=== PATIENT | female | born 1960 | race Caucasian/White ===

== ENCOUNTER → 2016-12-02 | Outpatient (CLI) | payer BC ==
[2016-12-02 10:30] LABS: ALT 30 U/L (9-52); AST 20 U/L (14-36); Alkaline Phosphatase 71 U/L (38-126); Anion Gap 11 mmol/L; Blood Urea Nitrogen 13 mg/dL (7-17); Calcium 10.1 mg/dL (8.4-10.2); Carbon Dioxide 24 mmol/L (22-30); Chloride 108 mmol/L (98-107); Cholesterol 207 mg/dL (<200); Glucose 96 mg/dL (74-99); HDL Cholesterol 58 mg/dL (40-60); Non-African American GFR(MDRD) >60 (>60 ml/min/1.73 sqM); Potassium 4.4 mmol/L (3.5-5.1); Sodium 143 mmol/L (137-145); Total Bilirubin 0.6 mg/dL (0.2-1.3); Total Protein 6.9 g/dL (6.3-8.2); Triglycerides 93 mg/dL (<150)
== END | disposition home or self-care (01) ==
LOC: LABWHC1 09:04
PROVIDERS: ATTEND Obstetrics & Gynecology
DX: Z01.419 Encounter for gynecological examination (general) (routine) without abnormal findings (principal); Z13.29 Encounter for screening for other suspected endocrine disorder
CPT/HCPCS: 36415; 80053; 80061; 82306; 84439; 84443

== ENCOUNTER → 2016-12-31 | Outpatient (CLI) | payer BC ==
[2016-12-31 12:49] LABS: ALT 35 U/L (9-52); AST 24 U/L (14-36); Alkaline Phosphatase 70 U/L (38-126); Anion Gap 10 mmol/L; Blood Urea Nitrogen 14 mg/dL (7-17); Calcium 9.2 mg/dL (8.4-10.2); Carbon Dioxide 26 mmol/L (22-30); Chloride 105 mmol/L (98-107); Glucose 91 mg/dL (74-99); Magnesium 1.9 mg/dL (1.6-2.3); Non-African American GFR(MDRD) >60 (>60 ml/min/1.73 sqM); Potassium 4.6 mmol/L (3.5-5.1); Sodium 141 mmol/L (137-145); Total Bilirubin 0.6 mg/dL (0.2-1.3); Total Protein 6.7 g/dL (6.3-8.2)
== END | disposition home or self-care (01) ==
LOC: LABWHC1 11:47
PROVIDERS: ATTEND Family Medicine
DX: J30.2 Other seasonal allergic rhinitis (principal); B34.9 Viral infection, unspecified
CPT/HCPCS: 36415; 80053; 83735

== ENCOUNTER → 2017-05-25 | Outpatient (CLI) | payer BC ==
--- NOTE | 2017-05-26 10:22 | MM ---
Reason for exam: screening (asymptomatic). Last mammogram was performed 1 year and 2 months ago. History: Patient is postmenopausal and is nulliparous. Took hormonal contraceptives for 1 year. Taking estrogen for 5 years 4 months. Physical Findings: A clinical breast exam by your physician is recommended on an annual basis and results should be correlated with mammographic findings. MG 3D Screening Mammo W/Cad Bilateral CC and MLO view(s) were taken. Prior study comparison: April 04, 2016, bilateral MG 3d screening mammo w/cad. August 29, 2013, bilateral digital screening mammo w/CAD. May 02, 2012, [facility] DIGITAL RIGHT MAMMOGRAM w/CAD. The breast tissue is heterogeneously dense. This may lower the sensitivity of mammography. There are increasing heterogeneous calcifications. This finding is changed when compared with previous exams. ASSESSMENT: Incomplete: need additional imaging evaluation, BI-RAD 0 RECOMMENDATION: Special view mammogram of the right breast. [facility] will attempt to contact patient to return for supplemental views.
== END | disposition home or self-care (01) ==
LOC: RADMAMWWP 16:36
PROVIDERS: ATTEND Obstetrics & Gynecology
DX: Z12.31 Encounter for screening mammogram for malignant neoplasm of breast (principal)
CPT/HCPCS: 77063; G0202

== ENCOUNTER → 2017-05-30 | Outpatient (CLI) | payer BC ==
--- NOTE | 2017-05-30 11:20 | USB ---
Reason for exam: additional evaluation requested from abnormal screening. History: Patient is postmenopausal and is nulliparous. Took hormonal contraceptives for 1 year. Taking estrogen for 10 years beginning at age 46. US Breast Workup Limited RT Right breast ultrasound demonstrates a 9 x 8 x 6mm oval, lobular cystic cluster at palpable posterior nipple with possible solid component. These results were verbally communicated with the patient and result sheet given to the patient on 05/30/17. ASSESSMENT: Suspicious, BI-RAD 4 RECOMMENDATION: Ultrasound core biopsy of the right breast. Called Dr. Henriquez with mammographic findings and has scheduled an appointment for the patient for 06/15/17 at 10:[address] Chisholm. Biopsy scheduled for 06/02/17 at 8:00. PRELIMINARY REPORT CALLED AND FAXED TO DR. CHISHOLM ON 05/30/17/TP.
--- NOTE | 2017-05-30 11:21 | MM ---
Reason for exam: additional evaluation requested from abnormal screening. Last mammogram was performed 1 year and 2 months ago. History: Patient is postmenopausal and is nulliparous. Took hormonal contraceptives for 1 year. Taking estrogen for 10 years beginning at age 46. Physical Findings: Nurse Summary: 0.5cm nodule in the right breast at 12 o'clock (nurse lyle). MG Work Up Mamm w CAD RT CC, MLO, LM, LM with magnification, and CC with magnification view(s) were taken of the right breast. Prior study comparison: May 25, 2017, bilateral MG 3d screening mammo w/cad. April 04, 2016, bilateral MG 3d screening mammo w/cad. August 29, 2013, bilateral digital screening mammo w/CAD. Finding: There are punctate, round calcifications in the right breast for which a 6 month follow up is recommended. These results were verbally communicated with the patient and result sheet given to the patient on 05/30/17. ASSESSMENT: Incomplete: need additional imaging evaluation, BI-RAD 0 RECOMMENDATION: Ultrasound of the right breast. (right palpable) Manage patient on a clinical basis.
== END | disposition home or self-care (01) ==
LOC: RADMAMWWP 08:53
PROVIDERS: ATTEND Obstetrics & Gynecology
DX: R92.8 Other abnormal and inconclusive findings on diagnostic imaging of breast (principal)
CPT/HCPCS: 76642; G0206

== ENCOUNTER → 2017-06-02 | Day surgery (SDC) | payer BC ==
[2017-06-02 07:34] VITALS: RESP 16; TEMP 97.7; BMI 38.7
[2017-06-02 09:49] VITALS: BP 132/67; PULSE 78
--- NOTE | 2017-06-05 08:58 | MM ---
EXAMINATION TYPE: US biopsy breast VAD RT, US breast workup limited RT, MG diagnostic mammo RT wo CAD DATE OF EXAM: 06/02/2017 CLINICAL HISTORY: R92.8 ABN MAMMO. TECHNIQUE: Ultrasound guided core biopsy of right breast. COMPARISON: NONE FINDINGS: The procedure of ultrasound guided core biopsy was explained to the patient. Benefits, alternatives, and risks were discussed. An informed consent was then obtained. The patient was placed in supine positioning for imaging and for the procedure. The overlying skin was prepped and draped in usual sterile fashion. 10 cc of 1% lidocaine was was used as anesthetic into the skin and subcutaneous tissue up to area of concern in the right breast. Under ultrasound guidance, a 12-gauge vacuum assisted biopsy gun device was used to obtain 5 core samples. Following this, a ribbon-shaped biopsy clip was left in lesion. The lesion was noted to collapse during biopsy with residual fluid insinuating along the fibroglandular tissue. The patient tolerated the procedure well without any immediate complication. The patient was kept in the radiology department for short stay after the procedure and then discharged home in stable condition. IMPRESSION: 1. Successful, uncomplicated ultrasound guided core biopsy of area of concern in the right breast, full pathology results to follow. 2. Six-month follow-up diagnostic right mammogram remains a recommendation regarding calcifications. Pathology Results: Benign BREAST, RIGHT, ULTRASOUND GUIDED CORE BIOPSY: FIBROCYSTIC CHANGE (STROMAL FIBROSIS, CYST FORMATION, APOCRINE METAPLASIA AND DUCT HYPERPLASIA). Recommendation Follow up ultrasound of the right breast in 6 months. JENNIFER
== END ==
LOC: RADUSWWP 07:13
PROVIDERS: ATTEND Surgery
DX: N60.31 Fibrosclerosis of right breast (principal); N60.81 Other benign mammary dysplasias of right breast; R92.8 Other abnormal and inconclusive findings on diagnostic imaging of breast
CPT/HCPCS: 88305; 19083; G0206; A4648; J2001

== ENCOUNTER → 2018-01-03 | Outpatient (CLI) | payer BC ==
--- NOTE | 2018-01-04 09:37 | MM ---
Reason for exam: follow-up at short interval from prior study. Last mammogram was performed 7 months ago. History: Patient is postmenopausal and is nulliparous. Benign US biopsy breast VAD RT of the right breast, June 05, 2017. Took hormonal contraceptives for 1 year. Taking estrogen for 10 years beginning at age 46. Physical Findings: Nurse did not find any significant physical abnormalities on exam. MG Diagnostic Mammo RT w CAD CC and MLO view(s) were taken of the right breast. Prior study comparison: June 02, 2017, right breast MG diagnostic mammo RT wo CAD. May 30, 2017, right breast MG work up mamm w CAD RT. The breast tissue is heterogeneously dense. This may lower the sensitivity of mammography. Stable benign calcifications. Previous mammotome biopsy in the right breast. No significant new findings when compared with previous films. These results were verbally communicated with the patient and result sheet given to the patient on 01/03/18. ASSESSMENT: Incomplete: need additional imaging evaluation, BI-RAD 0 RECOMMENDATION: Ultrasound of the right breast.
--- NOTE | 2018-01-04 09:38 | USB ---
Reason for exam: follow-up at short interval from prior study. History: Patient is postmenopausal and is nulliparous. Benign US biopsy breast VAD RT of the right breast, June 05, 2017. Took hormonal contraceptives for 1 year. Taking estrogen for 10 years beginning at age 46. US Breast RT Right breast ultrasound includes all four quadrants, the retroareolar region and axilla. Finding demonstrates a 0.7 x 0.4 x 0.9cm cystic cluster at the posterior nipple. These results were verbally communicated with the patient and result sheet given to the patient on 01/03/18. ASSESSMENT: Benign, BI-RAD 2 RECOMMENDATION: Return to routine screening mammogram schedule for both breasts. Back on schedule.
== END | disposition home or self-care (01) ==
LOC: RADMAMWWP 13:27
PROVIDERS: ATTEND Surgery
DX: R92.8 Other abnormal and inconclusive findings on diagnostic imaging of breast (principal)
CPT/HCPCS: 77065

== ENCOUNTER 2018-03-14 07:51 | Day surgery (SDC) | payer BC ==
[2018-03-09 12:24] VITALS: BMI 38.4
--- NOTE | 2018-03-14 07:06 | P.GSHP ---
History of Present Illness H&P Date: 03/14/18 CHIEF COMPLAINT: Colon screen HISTORY OF PRESENT ILLNESS: The patient is a 57-year-old female who presents for colon screen. Lower endoscopy was offered for further evaluation and management. PAST MEDICAL HISTORY: Please see list. PAST SURGICAL HISTORY: Please see list. MEDICATIONS: Please see list. ALLERGIES: Please see list. SOCIAL HISTORY: No illicit drug use FAMILY HISTORY: No reports of Crohn disease or ulcerative colitis. REVIEW OF ORGAN SYSTEMS: CONSTITUTIONAL: No reports of fevers or chills. PHYSICAL EXAM: VITAL SIGNS: Stable GENERAL: Well-developed pleasant in no acute distress. HEENT: No scleral icterus. Extraocular movements grossly intact. Moist buccal mucosa. NECK: Supple without lymphadenopathy. CHEST: Unlabored respirations. Equal bilateral excursions. CARDIOVASCULAR: Regular rate and rhythm. Distal 2+ pulses. ABDOMEN: Soft, nontender, nondistended. MUSCULOSKELETAL: No clubbing, cyanosis, or edema. ASSESSMENT: 1. Colon screen. PLAN: 1. Recommend proceeding with a lower endoscopy Past Medical History Past Medical History: Asthma, GERD/Reflux Additional Past Medical History / Comment(s): SEASONAL ALLERGIES. MIGRAINES. History of Any Multi-Drug Resistant Organisms: None Reported Past Surgical History: Hysterectomy, Joint Replacement Additional Past Surgical History / Comment(s): right knee replacement-2011. [employer]. Past Anesthesia/Blood Transfusion Reactions: No Reported Reaction Smoking Status: Never smoker - Past Family History Mother Family Medical History: No Reported History Medications and Allergies Home Medications Medication Instructions Recorded Confirmed Type Topiramate [Topamax] 25 mg PO HS 05/30/17 03/09/18 History Estrogens, Conjugated [Premarin] 0.3 mg PO DAILY 05/31/17 03/09/18 History Montelukast [Singulair] 10 mg PO HS 05/31/17 03/09/18 History Calcium Carbonate/Vitamin D3 1 each PO DAILY 03/09/18 03/09/18 History [Caltrate 600 Plus D3 Tablet] Diclofenac Potassium [Cataflam] 100 mg PO DAILY PRN 03/09/18 03/09/18 History Ibuprofen [Motrin Ib] 200 - 400 mg PO Q6H PRN 03/09/18 03/09/18 History Indomethacin Suppository [Indocin] 50 mg RECTAL DAILY PRN 03/09/18 03/09/18 History Loratadine [Claritin] 10 mg PO DAILY PRN 03/09/18 03/09/18 History Loratadine-Pseudoeph 5-120 mg 1 each PO Q12HR PRN 03/09/18 03/09/18 History [Claritin-D 12 HR] Multivit/Folic Acid/Vit K1 1 each PO DAILY 03/09/18 03/09/18 History [One-A-Day Women's 50 Plus Tab] Allergies Allergy/AdvReac Type Severity Reaction Status Date / Time Penicillins Allergy Unknown Verified 03/09/18 11:59 Childhood
[~2018-03-14 07:51] MED LIST: LACTATED RINGERS 1,000 ML IV SCH; LIDOCAINE 1% 20 ML VIAL (10MG/ML) FOR IV START INTRADERMA PRN
[2018-03-14 08:14] VITALS: TEMP 98.1
[2018-03-14] MEDS ORDERED: PROPOFOL 10 MG/ML 20 ML VIAL IV ONE (08:42)
[2018-03-14] MEDS ORDERED: LIDOCAINE 1% INJ 10MG/ML (20 ML MDV) ONE (08:42)
[2018-03-14 09:25] VITALS: BP 129/65; PULSE 75; RESP 16
--- NOTE | 2018-03-14 10:18 | P.PCN ---
Date of Procedure: 03/14/18 Description of Procedure: PREOPERATIVE DIAGNOSIS: Colonoscopy screening. Family history colon polyps, mother POSTOPERATIVE DIAGNOSIS: Colonoscopy screening. Family history colon polyps, mother Sigmoid diverticulosis Hepatic flexure polyp OPERATION: Colonoscopy to the ileocecal valve and appendiceal orifice. Colonoscopy with cold forceps biopsy. SURGEON: Maritza Diane MD. ANESTHESIA: MAC. INDICATIONS: The patient is a 57-year-old female who presents for her first colonoscopy screening. Benefits and risks were described and informed consent was obtained. DESCRIPTION OF PROCEDURE: The patient had undergone Gatorade, MiraLAX and Dulcolax prep. She had been brought into the operating room and laid in the left lateral decubitus position. After adequate intravenous sedation, the rectum was examined with 2% lidocaine jelly. No external hemorrhoids were encountered. The rectal tone was within normal limits. No lesions were palpated in the rectal vault. An Olympus colonoscope was advanced until the ileocecal valve and appendiceal orifice were clearly viewed. The prep was good with visualization of the mucosal folds. The scope was removed with visualization of each mucosal fold. Scattered diverticulosis was encountered. Hepatic flexure polyp was cold forcep biopsy. No evidence of focal colitis was found. Retroflexion of the scope demonstrated grade 1 internal hemorrhoids without active bleeding or inflammation. The colon was desufflated. The patient had tolerated the procedure well. Withdrawal time was over 6 minutes. FINDINGS: Internal hemorrhoids, grade 1 No external hemorrhoids. No arteriovenous malformations. Removal of 1 polyp: - Cold forceps biopsy at hepatic flexure, 4 mm polyp. Multiple large diverticulosis, sigmoid colon No focal colitis. RECOMMENDATIONS: Repeat colonoscopy in 5 years, 2022 Plan - Discharge Summary New Discharge Prescriptions: No Action Topiramate [Topamax] 25 mg PO HS Montelukast [Singulair] 10 mg PO HS Estrogens, Conjugated [Premarin] 0.3 mg PO DAILY Diclofenac Potassium [Cataflam] 100 mg PO DAILY PRN PRN Reason: Migraine Headache Ibuprofen [Motrin Ib] 200 - 400 mg PO Q6H PRN PRN Reason: Pain Multivit/Folic Acid/Vit K1 [One-A-Day Women's 50 Plus Tab] 1 each PO DAILY Loratadine [Claritin] 10 mg PO DAILY PRN PRN Reason: ALLERGY SX Calcium Carbonate/Vitamin D3 [Caltrate 600 Plus D3 Tablet] 1 each PO DAILY Loratadine-Pseudoeph 5-120 mg [Claritin-D 12 HR] 1 each PO Q12HR PRN PRN Reason: ALLERGY SX Indomethacin Suppository [Indocin] 50 mg RECTAL DAILY PRN PRN Reason: Migraine Headache Discharge Medication List Topiramate [Topamax] 25 mg PO HS 05/30/17 [History] Estrogens, Conjugated [Premarin] 0.3 mg PO DAILY 05/31/17 [History] Montelukast [Singulair] 10 mg PO HS 05/31/17 [History] Calcium Carbonate/Vitamin D3 [Caltrate 600 Plus D3 Tablet] 1 each PO DAILY 03/09 [History] Diclofenac Potassium [Cataflam] 100 mg PO DAILY PRN 03/09/18 [History] Ibuprofen [Motrin Ib] 200 - 400 mg PO Q6H PRN 03/09/18 [History] Indomethacin Suppository [Indocin] 50 mg RECTAL DAILY PRN 03/09/18 [History] Loratadine [Claritin] 10 mg PO DAILY PRN 03/09/18 [History] Loratadine-Pseudoeph 5-120 mg [Claritin-D 12 HR] 1 each PO Q12HR PRN 03/09/18 [ History] Multivit/Folic Acid/Vit K1 [One-A-Day Women's 50 Plus Tab] 1 each PO DAILY 03/09 [History] Follow up Appointment(s)/Referral(s): Maritza Diane MD [STAFF PHYSICIAN] - As Needed Patient Instructions/Handouts: *Surgery [facility] - (Anesthesia) Endoscopy Discharge Instructions, Colonoscopy (DC), Diverticulosis (DC), Colorectal Polyps (DC), Diverticulosis Diet (GEN) Activity/Diet/Wound Care/Special Instructions: Repeat colonoscopy, 5 years, 2022 Discharge Disposition: HOME SELF-CARE
== END 2018-03-14 09:43 | disposition home or self-care (01) ==
LOC: ORWHC2ENDO 07:51
PROVIDERS: ATTEND Surgery Plastic and Reconstructive Surgery
DX: Z12.11 Encounter for screening for malignant neoplasm of colon (principal); K63.5 Polyp of colon; K57.30 Diverticulosis of large intestine without perforation or abscess without bleeding; K21.9 Gastro-esophageal reflux disease without esophagitis; K64.0 First degree hemorrhoids; J45.909 Unspecified asthma, uncomplicated; Z96.651 Presence of right artificial knee joint; Z79.899 Other long term (current) drug therapy; Z79.890 Hormone replacement therapy; Z88.0 Allergy status to penicillin; Z83.71 Family history of colonic polyps; G43.909 Migraine, unspecified, not intractable, without status migrainosus
CPT/HCPCS: 45380; 88305

== ENCOUNTER → 2018-08-08 | Outpatient (CLI) | payer BC ==
--- NOTE | 2018-08-09 13:12 | MM ---
Reason for exam: screening (asymptomatic). Last mammogram was performed 7 months ago. History: Patient is postmenopausal and is nulliparous. Benign US biopsy breast VAD RT of the right breast, June 05, 2017. Took hormonal contraceptives for 1 year. Taking estrogen for 10 years beginning at age 46. MG 3D Screening Mammo W/Cad Bilateral CC and MLO view(s) were taken. Prior study comparison: January 03, 2018, right breast MG diagnostic mammo RT w CAD. June 02, 2017, right breast MG diagnostic mammo RT wo CAD. The breast tissue is heterogeneously dense. This may lower the sensitivity of mammography. No significant changes when compared with prior studies. ASSESSMENT: Benign, BI-RAD 2 RECOMMENDATION: Routine screening mammogram of both breasts in 1 year.
== END | disposition home or self-care (01) ==
LOC: RADMAMWWP 09:51
PROVIDERS: ATTEND Obstetrics & Gynecology
DX: Z12.31 Encounter for screening mammogram for malignant neoplasm of breast (principal); N95.1 Menopausal and female climacteric states
CPT/HCPCS: 77063; 77067

== ENCOUNTER → 2019-11-14 | Outpatient (CLI) | payer BC ==
--- NOTE | 2019-11-15 16:52 | MM ---
Reason for exam: screening (asymptomatic). Last mammogram was performed 1 year and 3 months ago. History: Patient is postmenopausal and is nulliparous. Family history of breast cancer in mother at age 77. Benign US biopsy breast VAD RT of the right breast, June 05, 2017. Took hormonal contraceptives for 4 years. Took estrogen for 10 years beginning at age 46. Physical Findings: A clinical breast exam by your physician is recommended on an annual basis and results should be correlated with mammographic findings. MG 3D Screening Mammo W/Cad Bilateral CC and MLO view(s) were taken. Prior study comparison: August 08, 2018, bilateral MG 3d screening mammo w/cad. January 03, 2018, right breast MG diagnostic mammo RT w CAD. The breast tissue is heterogeneously dense. This may lower the sensitivity of mammography. Finding: There are typically benign coarse, grouped/clustered calcifications in the lower inner quadrant, anterior position of the right breast. Some developing calcifications are adjacent. Closer evaluation of these fine calcifications are recommended. New finding since August 08, 2018 and January 03, 2018. ASSESSMENT: Incomplete: need additional imaging evaluation, BI-RAD 0 RECOMMENDATION: Special view mammogram of the right breast. [facility] will attempt to contact patient to return for supplemental views.
== END | disposition home or self-care (01) ==
LOC: RADMAMWWP 16:15
PROVIDERS: ATTEND Family Medicine
DX: Z12.31 Encounter for screening mammogram for malignant neoplasm of breast (principal); Z80.3 Family history of malignant neoplasm of breast
CPT/HCPCS: 77063; 77067

== ENCOUNTER → 2019-11-19 | Outpatient (CLI) | payer BC ==
--- NOTE | 2019-11-19 12:02 | MM ---
Reason for exam: additional evaluation requested from abnormal screening. Last mammogram was performed less than 1 month ago. History: Patient is postmenopausal and is nulliparous. Family history of breast cancer in mother at age 77. Benign US biopsy breast VAD RT of the right breast, June 05, 2017. Took hormonal contraceptives for 4 years. Took estrogen for 10 years beginning at age 46. Physical Findings: Nurse did not find any significant physical abnormalities on exam. MG 3D Work Up W/Cad RT Spot compression CC with magnification, LM with magnification, and LM view(s) were taken of the right breast. Prior study comparison: November 14, 2019, bilateral MG 3d screening mammo w/cad. August 08, 2018, bilateral MG 3d screening mammo w/cad. Indeterminate microcalcifications right breast 3.6cm from nipple lower inner quadrant. These results were verbally communicated with the patient and result sheet given to the patient on 11/19/19. ASSESSMENT: Suspicious, BI-RAD 4 RECOMMENDATION: Stereotactic core biopsy of the right breast. Called Dr. Bledsoe's office with mammographic findings and has scheduled an appointment for the patient for 01/15/20 at 4:[address] Chisholm. Biopsy scheduled for 12/30/19 at 2:20. PRELIMINARY REPORT CALLED AND FAXED TO DR. CHISHOLM ON 11/19/19.
== END | disposition home or self-care (01) ==
LOC: RADMAMWWP 10:00
PROVIDERS: ATTEND Family Medicine
DX: R92.8 Other abnormal and inconclusive findings on diagnostic imaging of breast (principal)
CPT/HCPCS: 77061; 77065

== ENCOUNTER → 2020-03-26 | Day surgery (SDC) | payer BC ==
--- NOTE | 2020-03-26 11:19 | MM ---
EXAMINATION TYPE: MG stereo VAD BX RT DATE OF EXAM: 03/26/2020 COMPARISON: Prior mammogram November 19, 2019 and older mammograms. CLINICAL HISTORY: Abnormal mammogram. Suspicious group of microcalcifications right breast TECHNIQUE: Stereotactic guided core biopsy of right breast with clip placement and follow-up diagnostic two-view mammogram. FINDINGS: The procedure of stereotactic guided core biopsy was explained to the patient. Benefits, alternatives, and risks were discussed. An informed consent was then obtained. [facility]. Shortness pathway was medial approach. I performed the localization, then performed the remainder of the procedure. Overlying skin is cleansed with Betadine. Lidocaine was used as anesthetic into the skin. Lidocaine with epinephrine is used as anesthetic into the deeper tissue. A vacuum assisted biopsy gun was used to obtain multiple core samples. The patient tolerated the procedure well without any immediate complication. The patient was kept in the radiology department for short stay after the procedure and then discharged home in stable condition. Targeted calcifications are identified in specimen mammogram. Post biopsy mammogram shows the clip to appear in satisfactory position relative to the targeted area of concern on the preprocedure images. Small to moderate sized focal hematoma noted after procedure on the postprocedure mammogram images. IMPRESSION: SUCCESSFUL, UNCOMPLICATED STEREOTACTIC GUIDED CORE BIOPSY OF AREA OF CONCERN IN THE RIGHT BREAST, FULL PATHOLOGY RESULTS TO FOLLOW. Intermediate index of suspicion noted at time of procedure. Pathology Results: Benign RIGHT BREAST, STEREOTACTIC CORE BIOPSY: Fibrocystic changes including cysts, fibrosis, apocrine metaplasia, columnar cell change and mild usual type ductal hyperplasia. Focal pseudoangiomatous stromal hyperplasia (PASH). Intraluminal calcium oxalate crystals are identified. Recommendation Follow up mammogram of the right breast in 6 months. JENNIFER
[2020-03-26 11:22] VITALS: BP 149/84; PULSE 75; RESP 16; TEMP 97.8
== END ==
LOC: RADMAMWWP 09:12
PROVIDERS: ATTEND Surgery
DX: N60.31 Fibrosclerosis of right breast (principal); N60.81 Other benign mammary dysplasias of right breast; N64.89 Other specified disorders of breast
CPT/HCPCS: 88305; 19081; A4648; J2001

== ENCOUNTER → 2020-04-28 | Outpatient (CLI) | payer BC ==
[2020-04-28 09:41] LABS: Basophils # (A) 0.1 k/uL (0-0.2); Basophils % (A) 1 %; Eosinophils # (A) 0.5 k/uL (0-0.7); Eosinophils % (A) 8 %; HCT 44.3 % (34.0-46.0); HGB 14.2 gm/dL (11.4-16.0); Lymphocytes # (A) 1.6 k/uL (1.0-4.8); Lymphocytes % (A) 29 %; MCH 29.8 pg (25.0-35.0); MCHC 32.1 g/dL (31.0-37.0); MCV 92.9 fL (80.0-100.0); Mean Platelet Volume 8.1; Monocytes # (A) 0.3 k/uL (0-1.0); Monocytes % (A) 5 %; Neutrophils # (A) 3.1 k/uL (1.3-7.7); Neutrophils % (A) 55 %; Platelet Count 267 k/uL (150-450); RBC 4.77 m/uL (3.80-5.40); RDW 13.2 % (11.5-15.5); WBC 5.5 k/uL (3.8-10.6)
[2020-04-28 16:33] LABS: INR 0.94 (0.90-1.11); Prothrombin Time 10.1 sec (9.9-11.9)
[2020-04-28 16:34] LABS: African American GFR (CKD) 111.5 (60.0-200.0); Albumin/Globulin Ratio 1.74 (1.60-3.17); Anion Gap 6.9 mmol/L (4.00-12.00); BUN/Creat Ratio 22.86 Ratio (12.00-20.00); Calcium 9.3 mg/dL (8.7-10.3); Carbon Dioxide 29.1 mmol/L (21.6-31.8); Chol/HDL Ratio 3.59; Globulin 2.3 g/dL (1.6-3.3); LDL Cholesterol,Calculated 138.2 mg/dL (0.0-131.0); Non-African American GFR(CKD) 96.2 (60.0-200.0); Potassium 4.6 mmol/L (3.5-5.5); Total Bilirubin 0.5 mg/dL (0.3-1.2); Total Protein 6.3 g/dL (6.2-8.2); VLDL Calculation 19.8 mg/dL (5.00-40.00)
[2020-04-28 16:42] LABS: T4, Free (Free Thyroxine) 1.2 ng/dL (0.80-1.80)
== END | disposition home or self-care (01) ==
LOC: LABWHC1 08:19
PROVIDERS: ATTEND Nurse Practitioner Family
DX: Z00.00 Encounter for general adult medical examination without abnormal findings (principal); R23.3 Spontaneous ecchymoses; Z51.81 Encounter for therapeutic drug level monitoring
CPT/HCPCS: 36415; 80053; 80061; 84439; 84443; 85025; 85610

== ENCOUNTER → 2020-04-28 | Outpatient (CLI) | payer BC ==
--- NOTE | 2020-04-28 15:47 | BD ---
EXAMINATION TYPE: Axial Bone Density DATE OF EXAM: 04/28/2020 COMPARISON: NONE CLINICAL HISTORY: 59-year-old female postmenopausal screening Height: 5 FT 2 IN Weight: 221 FRAX RISK QUESTIONS: Alcohol (3 or more units per day): NO Family History (Parent hip fracture): NO Glucocorticoids (More than 3mos): YES (Ex: prednisone, prednisolone, methylprednisolone, dexamethasone, and hydrocortisone). History of Fracture in Adulthood: YES Secondary Osteoporosis: 1. Type 1 Diabetes: NO 2. Hyperthyroidism: NO 3. Menopause before 45: NO 4. Malnutrition: NO 5. Chronic liver disease: NO Rheumatoid Arthritis: NO Current Tobacco Use: NO RISK FACTORS HISTORY OF: Family History of Osteoporosis: YES Active: YES Postmenopausal woman: PART HYST UNSURE TOMMY SYMPTOMS AROUND AGE 52 MEDICATIONS: Additional Medications: MIGRAINE MEDS, CATAFLAM, TRAZODONE NEEDED, Additional History: EXAM MEASUREMENTS: Bone mineral densitometry was performed using the 8digits System. Bone mineral density as measured about the Lumbar spine is: ----- L1-L4(G/cm2): 1.104 T Score Values are as follows: ----- L2: -0.7 ----- L3: -0.3 ----- L4: -0.1 ----- L1-L4: -0.6 Bone mineral density has: DECREASED -1.1 % since study of: 2011 Bone mineral density about the R hip (g/cm2): 0.793 Bone mineral density about the L hip (g/cm2): .0827 T Score values are as follows: -----R Neck: -1.8 -----L Neck: -1.5 -----R Total: -1.2 -----L Total: -0.5 Bone mineral density has: DECREASED -10.9 % since study of: 2011 IMPRESSION: Osteopenia (T Score between -2.5 and -1). There is slightly increased risk of fracture and the patient may be considered for treatment. Re-Screen 2-5 years all. NOTE: T-SCORE=SD OF THE YOUNG ADULT MEAN.
== END | disposition home or self-care (01) ==
LOC: RADBDWWP 07:24
PROVIDERS: ATTEND Obstetrics & Gynecology
DX: N95.1 Menopausal and female climacteric states (principal)
CPT/HCPCS: 77080

== ENCOUNTER → 2020-09-28 | Outpatient (CLI) | payer BC ==
--- NOTE | 2020-09-28 11:12 | MM ---
Reason for exam: follow-up at short interval from prior study. Last mammogram was performed 10 months ago. History: Patient is postmenopausal and is nulliparous. Family history of breast cancer in mother at age 77. Benign MG stereo VAD BX RT of the right breast, March 26, 2020. Benign US biopsy breast VAD RT of the right breast, June 05, 2017. Took hormonal contraceptives for 4 years. Took estrogen for 10 years beginning at age 46. Physical Findings: Nurse did not find any significant physical abnormalities on exam. MG 3D Diag Mammo W/Cad RT CC and MLO view(s) were taken of the right breast. Prior study comparison: November 19, 2019, right breast MG 3d work up w/cad RT. November 14, 2019, bilateral MG 3d screening mammo w/cad. The breast tissue is heterogeneously dense. This may lower the sensitivity of mammography. Stable calcifications. Previous mammotome biopsy in the right breast. These results were verbally communicated with the patient and result sheet given to the patient on 09/28/20. ASSESSMENT: Benign, BI-RAD 2 RECOMMENDATION: Return to routine screening mammogram schedule for both breasts. Back on schedule for November 2020.
== END | disposition home or self-care (01) ==
LOC: RADMAMWWP 10:17
PROVIDERS: ATTEND Surgery
DX: R92.8 Other abnormal and inconclusive findings on diagnostic imaging of breast (principal)
CPT/HCPCS: 77061; 77065

== ENCOUNTER → 2020-12-25 | Outpatient (CLI) | payer BC ==
--- NOTE | 2020-12-29 10:34 | MM ---
Reason for exam: screening (asymptomatic). Last mammogram was performed 3 months ago. History: Patient is postmenopausal and is nulliparous. Family history of breast cancer in mother at age 77. Benign MG stereo VAD BX RT of the right breast, March 26, 2020. Benign US biopsy breast VAD RT of the right breast, June 05, 2017. Took hormonal contraceptives for 4 years. Took estrogen for 10 years beginning at age 46. Physical Findings: A clinical breast exam by your physician is recommended on an annual basis and results should be correlated with mammographic findings. MG 3D Screening Mammo W/Cad Bilateral CC and MLO view(s) were taken. Prior study comparison: September 28, 2020, right breast MG 3d diag mammo w/cad RT. November 19, 2019, right breast MG 3d work up w/cad RT. The breast tissue is heterogeneously dense. This may lower the sensitivity of mammography. Finding: There are stable typically benign grouped/clustered coarse calcifications in the anterior position of the right breast. Previous mammotome biopsy in the right breast. There is a chronic nodularity in the left breast. No significant changes in finding since September 28, 2020 and November 19, 2019. ASSESSMENT: Benign, BI-RAD 2 RECOMMENDATION: Routine screening mammogram of both breasts in 1 year.
== END | disposition home or self-care (01) ==
LOC: RADMAMWWP 14:34
PROVIDERS: ATTEND Obstetrics & Gynecology
DX: Z12.31 Encounter for screening mammogram for malignant neoplasm of breast (principal); Z80.3 Family history of malignant neoplasm of breast; Z78.0 Asymptomatic menopausal state
CPT/HCPCS: 77063; 77067

== ENCOUNTER 2021-11-30 23:19 | Emergency (ER) | payer BC ==
[2021-11-30 23:47] VITALS: BP 158/91; PULSE 75; RESP 18; TEMP 98
[2021-12-01] MEDS ORDERED: IBUPROFEN 400 MG TAB PO STA (00:29)
--- NOTE | 2021-12-01 00:36 | ED ---
Fall HPI - General Chief Complaint: Fall Stated Complaint: Fall, Head Injury Time Seen by Provider: 11/30/21 23:59 Source: patient Mode of arrival: ambulatory - History of Present Illness Initial Comments: This patient is a 60-year-old woman who presents to be evaluated after a fall with injury to her right face. The patient had been walking into her bathroom, tripped over the her pant leg and fell striking the right side of her face against bathtub. No loss consciousness. No change in vision. No epistaxis. MD Complaint: fall Onset/Timin -: hour(s) Fall From: standing When Fall Occurred: 1 hour [employer] Fall Witnessed: no Place Fall Occurred: home Loss of Consciousness: none Prolonged Down Time?: no Location: face Location - Extremities: Left: Hand Severity: moderate Context: tripped/slipped - Related Data Home Medications Medication Instructions Recorded Confirmed Montelukast [Singulair] 10 mg PO HS 05/31/17 03/26/20 Calcium Carbonate/Vitamin D3 1 each PO DAILY 03/09/18 03/26/20 [Caltrate 600 Plus D3 Tablet] Ibuprofen [Motrin Ib] 200 - 400 mg PO Q6H PRN 03/09/18 03/26/20 Indomethacin Suppository [Indocin] 50 mg RECTAL DAILY PRN 03/09/18 03/26/20 Multivit/Folic Acid/Vit K1 1 each PO DAILY 03/09/18 03/26/20 [One-A-Day Women's 50 Plus Tab] Levocetirizine Dihydrochloride 5 mg PO DAILY 03/05/20 03/26/20 [Xyzal] Fluticasone Nasal [place] [Flonase 1 spray EA NOSTRIL DAILY PRN 03/26/20 03/26/20 Nasal [place]] Olopatadine HCl [Pataday] 1 drop BOTH EYES DAILY PRN 03/26/20 03/26/20 traZODone HCL 25 mg PO HS PRN 03/26/20 03/26/20 Allergies Allergy/AdvReac Type Severity Reaction Status Date / Time Penicillins Allergy Unknown Verified 11/30/21 23:47 Childhood Review of Systems ROS Statement: Those systems with pertinent positive or pertinent negative responses have been documented in the HPI. ROS Other: All systems not noted in ROS Statement are negative. Eyes: Denies: eye pain, eye discharge, vision change ENT: Denies: ear pain, hearing loss, epistaxis, congestion Respiratory: Denies: dyspnea Cardiovascular: Denies: chest pain, syncope Gastrointestinal: Denies: abdominal pain, vomiting Musculoskeletal: Denies: back pain Neurological: Denies: headache, weakness, numbness, paresthesias Past Medical History Past Medical History: Asthma, GERD/Reflux Additional Past Medical History / Comment(s): SEASONAL ALLERGIES. MIGRAINES. History of Any Multi-Drug Resistant Organisms: None Reported Past Surgical History: Hysterectomy, Joint Replacement Additional Past Surgical History / Comment(s): right knee replacement-2011. [employer]. right toe fusion-2019. right breast ultrasound core biopsy 05/2017 benign Past Anesthesia/Blood Transfusion Reactions: No Reported Reaction Past Psychological History: No Psychological Hx Reported Smoking Status: Never smoker Past Alcohol Use History: Rare Past Drug Use History: None Reported - Past Family History Mother Family Medical History: No Reported History General Exam General appearance: alert, in no apparent distress Head exam: Present: atraumatic, normocephalic Eye exam: Present: PERRL, EOMI, periorbital swelling, periorbital tenderness. Absent: scleral icterus, conjunctival injection, nystagmus ENT exam: Present: normal oropharynx, mucous membranes moist, TM's normal bilaterally, normal external ear exam Neck exam: Present: normal inspection, full ROM. Absent: tenderness, meningismus Respiratory exam: Present: normal lung sounds bilaterally. Absent: respiratory distress, wheezes, rales Cardiovascular Exam: Present: regular rate, normal rhythm, normal heart sounds. Absent: systolic murmur, diastolic murmur, rubs, gallop GI/Abdominal exam: Present: soft. Absent: distended, tenderness, guarding Extremities exam: Present: normal inspection, full ROM, other (Patient does have some mild swelling at the PIP joints of third and fourth digit of the left hand. There is normal alignment. There is only minimal tenderness. No sensorimotor loss.). Absent: tenderness Back exam: Present: normal inspection. Absent: paraspinal tenderness, vertebral tenderness Neurological exam: Present: alert, oriented X3, CN II-XII intact. Absent: motor sensory deficit Skin exam: Present: warm, dry, intact, normal color. Absent: rash Course Vital Signs 11/30/21 23:41 Temperature 98 F Pulse Rate 75 Respiratory 18 Rate Blood Pressure 158/91 O2 Sat by Pulse 98 Oximetry Disposition Clinical Impression: Fall, Sprain of finger of left hand Disposition: HOME SELF-CARE Condition: Good Instructions (If sedation given, give patient instructions): Contusion in Adults (ED) Is patient prescribed a controlled substance at d/c from ED?: No Referrals: Miguelito Bledsoe Jr, DO [Primary Care Provider] - 1-2 days
--- NOTE | 2021-12-01 01:34 | CT ---
EXAMINATION TYPE: CT facial bones wo con DATE OF EXAM: 12/01/2021 COMPARISON: None HISTORY: fall CT DLP: 441.3 mGycm Automated exposure control for dose reduction was used. Images obtained from the bottom of the mandible to the top of the frontal sinuses without contrast. The mandibular ring is intact. Zygomatic arches appear intact. There is normal aeration of the mastoi d sinuses. Maxilla is intact. There is normal aeration of the paranasal sinuses. There is no evidenc e of orbital blowout fracture. There is no retro-orbital mass. Nasal bone appears normal. There is subcutaneous edema anterior to the right zygoma. The parotid glands and submandibular saliva ry glands appear normal. IMPRESSION: There is some bruising over the anterior right zygoma. No evidence of fracture of the facial bones.
== END 2021-12-01 04:05 | disposition home or self-care (01) ==
LOC: EC 23:19
DX: S63.633A Sprain of interphalangeal joint of left middle finger, initial encounter (principal); S63.635A Sprain of interphalangeal joint of left ring finger, initial encounter; K21.9 Gastro-esophageal reflux disease without esophagitis; Z88.0 Allergy status to penicillin; Z90.710 Acquired absence of both cervix and uterus; Z96.651 Presence of right artificial knee joint; W01.10XA Fall on same level from slipping, tripping and stumbling with subsequent striking against unspecified object, initial encounter
CPT/HCPCS: 70486; 99283

== ENCOUNTER → 2023-08-07 | Outpatient (CLI) | payer BC ==
--- NOTE | 2023-08-08 18:53 | MM ---
Reason for Exam: Screening (asymptomatic). Last mammogram was performed 2 year(s) and 7 month(s) ago. Patient History: Menarche at age 14. Patient has no children. Left ovary removed at age 46. Right ovary removed at age 46. Hysterectomy at age 46. Postmenopausal. Estrogen, starting at age 46 for 10 years. Patient used Hormonal Contraceptives for 4 years. 03/26/2020, Benign Core Biopsy on the right side. 06/05/2017, Benign Core Biopsy on the right side. Maternal grandmother had ovarian cancer, age 68. Mother had breast cancer, age 77. Risk Values: Radha 5 year model risk: 4.2%. NCI Lifetime model risk: 20.1%. Prior Study Comparison: 11/19/2019 Right Diagnostic Mammogram, [facility]. 09/28/2020 Right Diagnostic Mammogram, [facility]. 12/25/2020 Bilateral Screening Mammogram, [facility]. Tissue Density: The breast tissue is heterogeneously dense. This may lower the sensitivity of mammography. Findings: Analyzed By CAD. Unchanged heterogeneous grouped calcifications anteriorly on the right. Unchanged bilateral areas of asymmetric density and chronic bilateral nodularity. There is no suspicious group of microcalcifications or new suspicious mass in either breast. Overall Assessment: Benign, BI-RAD 2 Management: Screening Mammogram of both breasts in 1 year. SEE NOTE BELOW IN REGARDS TO PATIENT'S INCREASED FIVE-YEAR RADHA SCORE AND INCREASED LIFETIME RISK SCORE. Patient should continue monthly self-breast exams. A clinical breast exam by your physician is recommended on an annual basis. This exam should not preclude additional follow-up of suspicious palpable abnormalities. Note on Radha scores and lifetime risk: 1. A Radha score greater than 3% is considered moderate risk. If this is the case, consider specialist referral to assess eligibility for a risk reducing agent. 2. If overall lifetime risk for the development of breast cancer is 20% or higher, the patient may qualify for future screening with alternating mammogram and breast MRI. Electronically signed and approved by: Becky Sales M.D. Radiologist
== END | disposition home or self-care (01) ==
LOC: RADMAMWWP 15:56
PROVIDERS: ATTEND Obstetrics & Gynecology
DX: Z12.31 Encounter for screening mammogram for malignant neoplasm of breast (principal); Z78.0 Asymptomatic menopausal state; Z80.3 Family history of malignant neoplasm of breast
CPT/HCPCS: 77063; 77067

== ENCOUNTER → 2023-08-25 | Outpatient (CLI) | payer BC ==
--- NOTE | 2023-08-25 15:24 | BD ---
EXAMINATION TYPE: Axial Bone Density DATE OF EXAM: 08/25/2023 CLINICAL HISTORY: 62 years old Female. ICD-10 CODE: M85.88 OSTEOPENIA Height: 61.5 Weight: 218 FRAX RISK QUESTIONS: Family History (Parent hip fracture): no History of Fracture in Adulthood: no Secondary Osteoporosis: no RISK FACTORS HISTORY OF: Family History of Osteoporosis: yes, grandmother maternal Active: yes Diet low in dairy products/other sources of calcium: no Postmenopausal woman: yes 52 Lost more than 2 inches in height since high school: no Frequent falls: no MEDICATIONS: Additional Medications: yes migraine meds, shot for dry skin EXAM MEASUREMENTS: Bone mineral densitometry was performed using the MicroEnsure System. Bone mineral density as measured about the Lumbar spine is: ----- L1-L4(G/cm2): 1.068 T Score Values are as follows: ----- L1: -2.4 ----- L2: -0.8 ----- L3: -0.6 ----- L4: -0.3 ----- L1-L4: -0.9 Z Score Values are as follows: ----- L1: -2.3 ----- L2: -0.7 ----- L3: -0.5 ----- L4: -0.2 ----- L1-L4: -0.8 Bone mineral density has: Decreased -3.3% since study of: 04/28/2020 Bone mineral density about the R hip (g/cm2): 0.852 Bone mineral density about the L hip (g/cm2): 0.923 T Score values are as follows: -----R Neck: -2.0 -----L Neck: -1.8 -----R Total: -1.2 -----L Total: -0.7 Z Score values are as follows: -----R Neck: -1.5 -----L Neck: -1.3 -----R Total: -1.1 -----L Total: -0.5 Bone mineral density has: Decreased 1.8% since study of: 04/28/2020 FRAX%s: The graph provided illustrates a 8.6% chance for a major osteoporotic fx and a 1.0% chance fo r the hips probability for fx in 10 years time. IMPRESSION: Osteopenia (T Score between -2.5 and -1). There is slightly increased risk of fracture and the patient may be considered for treatment. Re-Screen 2-5 years. NOTE: T-SCORE=SD OF THE YOUNG ADULT MEAN.
== END | disposition home or self-care (01) ==
LOC: RADBDWWP 13:02
PROVIDERS: ATTEND Obstetrics & Gynecology
DX: M85.88 Other specified disorders of bone density and structure, other site (principal); Z78.0 Asymptomatic menopausal state
CPT/HCPCS: 77080

== ENCOUNTER 2024-01-03 09:07 | Day surgery (SDC) | payer BC ==
--- NOTE | 2024-01-03 07:36 | P.GSHP ---
History of Present Illness H&P Date: 01/03/24 CHIEF COMPLAINT: GERD and colon screen HISTORY OF PRESENT ILLNESS: The patient is a 63-year-old female who presents with gastroesophageal reflux disease and need for colon screen. Upper and lower endoscopy were offered for further evaluation and management. PAST MEDICAL HISTORY: Please see list. PAST SURGICAL HISTORY: Please see list. MEDICATIONS: Please see list. ALLERGIES: Please see list. SOCIAL HISTORY: No illicit drug use FAMILY HISTORY: No reports of Crohn disease or ulcerative colitis. REVIEW OF ORGAN SYSTEMS: CONSTITUTIONAL: No reports of fevers or chills. GI: Denies any blood in stools or constipation. PHYSICAL EXAM: VITAL SIGNS: Stable GENERAL: Well-developed pleasant in no acute distress. HEENT: No scleral icterus. Extraocular movements grossly intact. Moist buccal mucosa. NECK: Supple without lymphadenopathy. CHEST: Unlabored respirations. Equal bilateral excursions. CARDIOVASCULAR: Regular rate and rhythm. Distal 2+ pulses. ABDOMEN: Soft, nondistended. MUSCULOSKELETAL: No clubbing, cyanosis, or edema. ASSESSMENT: 1. Gastroesophageal reflux disease 2. Colon screen. PLAN: 1. Recommend proceeding with an upper and lower endoscopy Past Medical History Past Medical History: Asthma, GERD/Reflux Additional Past Medical History / Comment(s): SEASONAL ALLERGIES. NO INHALER. MIGRAINES. History of Any Multi-Drug Resistant Organisms: None Reported Past Surgical History: Hysterectomy, Joint Replacement Additional Past Surgical History / Comment(s): right knee replacement-2011. [employer]. right & LEFT toe fusion-2018. right breast ultrasound core biopsy 05/2017 benign Past Anesthesia/Blood Transfusion Reactions: No Reported Reaction Past Psychological History: No Psychological Hx Reported Smoking Status: Never smoker Past Alcohol Use History: Rare Past Drug Use History: None Reported - Past Family History Mother Family Medical History: No Reported History Medications and Allergies Home Medications Medication Instructions Recorded Confirmed Type Montelukast [Singulair] 10 mg PO HS PRN 05/31/17 01/01/24 History Calcium Carbonate/Vitamin D3 1 each PO DAILY 03/09/18 01/01/24 History [Caltrate 600 Plus D3 Tablet] Ibuprofen [Motrin Ib] 200 - 400 mg PO Q6H PRN 03/09/18 01/01/24 History Indomethacin Suppository-50Mg 50 mg RECTAL DAILY PRN 03/09/18 01/01/24 History [Indocin] Multivit/Folic Acid/Vit K1 1 each PO DAILY 03/09/18 01/01/24 History [One-A-Day Women's 50 Plus Tab] Levocetirizine Dihydrochloride 5 mg PO DAILY PRN 03/05/20 01/01/24 History [Xyzal] Fluticasone Nasal [place] [Flonase 1 spray EA NOSTRIL DAILY PRN 03/26/20 01/01/24 History Nasal [place]] Olopatadine HCl [Pataday] 1 drop BOTH EYES DAILY PRN 03/26/20 01/01/24 History Allergies Allergy/AdvReac Type Severity Reaction Status Date / Time Penicillins AdvReac Unknown Verified 01/01/24 11:23 Childhood
[2024-01-03] MEDS ORDERED: PROPOFOL 10 MG/ML 20 ML VIAL IV ONE (09:33)
[2024-01-03] MEDS: LACTATED RINGERS 1,000 ML IV SCH (09:41)
[2024-01-03 09:42] VITALS: RESP 16; TEMP 97.4
--- NOTE | 2024-01-03 10:17 | P.HPADDEND ---
H&P Addendum H&P Addendum Date: 01/03/24 Patient declined upper endoscopy
--- NOTE | 2024-01-03 10:47 | P.PCN ---
Date of Procedure: 01/03/24 Description of Procedure: PREOPERATIVE DIAGNOSIS: Colonoscopy screening. Personal history colon polyp POSTOPERATIVE DIAGNOSIS: Colonoscopy screening. Severe sigmoid diverticulosis OPERATION: Colonoscopy to the cecum, ileocecal valve and appendiceal orifice. SURGEON: Maritza Diane MD. ANESTHESIA: MAC. INDICATIONS: The patient is a 63-year-old female who presents for colonoscopy screening. Last colonoscopy of 5 years. Benefits and risks were described and informed consent was obtained. DESCRIPTION OF PROCEDURE: The patient had undergone Sutab prep. The patient had been brought into the operating room and laid in the left lateral decubitus position. After adequate intravenous sedation, the rectum was examined with 2% lidocaine jelly. No external hemorrhoids were encountered. The rectal tone was within normal limits. No lesions were palpated in the rectal vault. An Olympus colonoscope was advanced until the cecum, ileocecal valve and appendiceal orifice were clearly viewed. The prep was fair. Severe sigmoid diverticulosis was encountered. No colonic polyps were found. No evidence of focal colitis was found. Retroflexion of the scope demonstrated grade 1 internal hemorrhoids without active bleeding or inflammation. The colon was desufflated. The patient had tolerated the pro cedure well. Withdrawal time was over 6 minutes. FINDINGS: Aronchick preparation quality scale 3 (1-5) Internal hemorrhoids, grade 2 External prolapsed hemorrhoids, grade 2 No arteriovenous malformations. No adenomatous polyps. No focal colitis. Severe sigmoid diverticulosis RECOMMENDATIONS: Lower endoscopy in 5 years, 2028 Plan - Discharge Summary Discharge Rx Participant: No New Discharge Prescriptions: Continue Montelukast [Singulair] 10 mg PO HS PRN PRN Reason: ALLERGY SX Ibuprofen [Motrin Ib] 200 - 400 mg PO Q6H PRN PRN Reason: Pain Multivit/Folic Acid/Vit K1 [One-A-Day Women's 50 Plus Tab] 1 each PO DAILY Calcium Carbonate/Vitamin D3 [Caltrate 600 Plus D3 20 Mcg (800 Iu)] 1 each PO DAILY Indomethacin Suppository-50Mg [Indocin] 50 mg RECTAL DAILY PRN PRN Reason: Migraine Headache Levocetirizine Dihydrochloride [Xyzal] 5 mg PO DAILY PRN PRN Reason: PRE-ALLERGY INJ Fluticasone Nasal [place] [Flonase Nasal [place]] 1 spray EA NOSTRIL DAILY PRN PRN Reason: Allergy Symptoms Olopatadine HCl [Pataday] 1 drop BOTH EYES DAILY PRN PRN Reason: Allergy Symptoms Discharge Medication List Montelukast [Singulair] 10 mg PO HS PRN 05/31/17 [History] Calcium Carbonate/Vitamin D3 [Caltrate 600 Plus D3 20 Mcg (800 Iu)] 1 each PO DAILY 03/09/18 [History] Ibuprofen [Motrin Ib] 200 - 400 mg PO Q6H PRN 03/09/18 [History] Indomethacin Suppository-50Mg [Indocin] 50 mg RECTAL DAILY PRN 03/09/18 [History] Multivit/Folic Acid/Vit K1 [One-A-Day Women's 50 Plus Tab] 1 each PO DAILY 03/09/18 [History] Levocetirizine Dihydrochloride [Xyzal] 5 mg PO DAILY PRN 03/05/20 [History] Fluticasone Nasal [place] [Flonase Nasal [place]] 1 spray EA NOSTRIL DAILY PRN [History] Olopatadine HCl [Pataday] 1 drop BOTH EYES DAILY PRN 03/26/20 [History] Follow up Appointment(s)/Referral(s): Maritza Diane MD [STAFF PHYSICIAN] - As Needed Patient Instructions/Handouts: Diverticulosis (DC), Diverticulosis Diet (GEN) Activity/Diet/Wound Care/Special Instructions: Repeat colonoscopy 5 years, 2028 Discharge Disposition: HOME SELF-CARE
[2024-01-03 10:56] VITALS: BP 144/86; PULSE 75
== END 2024-01-03 10:48 | disposition home or self-care (01) ==
LOC: ORWHC2ENDO 09:07
PROVIDERS: ATTEND Surgery Plastic and Reconstructive Surgery
DX: Z12.11 Encounter for screening for malignant neoplasm of colon (principal); K64.1 Second degree hemorrhoids; K64.4 Residual hemorrhoidal skin tags; K57.30 Diverticulosis of large intestine without perforation or abscess without bleeding; K21.9 Gastro-esophageal reflux disease without esophagitis; J45.909 Unspecified asthma, uncomplicated; G43.909 Migraine, unspecified, not intractable, without status migrainosus; Z86.010 Personal history of colon polyps; Z88.0 Allergy status to penicillin; Z90.710 Acquired absence of both cervix and uterus; Z79.899 Other long term (current) drug therapy; Z79.51 Long term (current) use of inhaled steroids; Z91.048 Other nonmedicinal substance allergy status
CPT/HCPCS: 45378; J2704

== ENCOUNTER → 2024-09-03 | Outpatient (CLI) | payer BC ==
--- NOTE | 2024-09-04 16:28 | MM ---
Reason for Exam: Screening (asymptomatic). Last mammogram was performed 1 year(s) and 1 month(s) ago. Patient History: Menarche at age 14. Patient has no children. Left ovary removed at age 46. Right ovary removed at age 46. Hysterectomy at age 46. Postmenopausal. Estrogen, starting at age 46 for 10 years. Patient used Hormonal Contraceptives for 4 years. 03/26/2020, Benign Core Biopsy on the right side. 06/05/2017, Benign Core Biopsy on the right side. Maternal grandmother had ovarian cancer, age 68. Mother had breast cancer, age 77. Risk Values: Xiomara 5 year model risk: 4.4%. NCI Lifetime model risk: 19.6%. Prior Study Comparison: 09/28/2020 Right Diagnostic Mammogram, [facility]. 12/25/2020 Bilateral Screening Mammogram, [facility]. 08/07/2023 Bilateral MG 3D screening mammo w/cad, [facility]. Tissue Density: The breasts are heterogeneously dense, which may obscure small masses. Findings: Analyzed By CAD. Areas of asymmetric density and scattered round and heterogeneous calcifications are unchanged. Chronic nodularity posterior upper quadrant left breast. There is no suspicious group of microcalcifications or new suspicious mass in either breast. Overall Assessment: Benign, BI-RAD 2 Management: Screening Mammogram of both breasts in 1 year. See note below in regards to patient's increased 5 year Xiomara score and increased lifetime risk score. Patient should continue monthly self-breast exams. A clinical breast exam by your physician is recommended on an annual basis. This exam should not preclude additional follow-up of suspicious palpable abnormalities. Note on Xiomara scores and lifetime risk: 1. A Xiomara score greater than 3% is considered moderate risk. If this is the case, consider specialist referral to assess eligibility for a risk reducing agent. 2. If overall lifetime risk for the development of breast cancer is 20% or higher, the patient may qualify for future screening with alternating mammogram and breast MRI. [facility], , 09/04/2024 4:25 PM. Electronically signed and approved by: Becky Sales M.D. Radiologist
== END | disposition home or self-care (01) ==
LOC: RADMAMWWP 08:32
PROVIDERS: ATTEND Family Medicine
DX: Z12.31 Encounter for screening mammogram for malignant neoplasm of breast (principal); Z90.722 Acquired absence of ovaries, bilateral; Z78.0 Asymptomatic menopausal state; Z80.3 Family history of malignant neoplasm of breast; R92.333 Mammographic heterogeneous density, bilateral breasts
CPT/HCPCS: 77063; 77067